=== PATIENT | female | born 1970 | race Two or more races ===

== ENCOUNTER 2021-03-20 03:57 | Inpatient (IN) | payer OTHER ==
[2021-03-20] VITALS (10 sets, daily range): BP systolic 114–146; BP diastolic 66–98
[~2021-03-20] VITALS: Ht 165.1 cm; Wt 139.0 kg
[2021-03-20] MEDS ORDERED: NITROGLYCERIN 0.4 MG SL TAB SL ONE (06:45)
[2021-03-20] MEDS ORDERED: ASPirin 81 mg TAB PO ONE (07:00)
[2021-03-20 07:35] LABS: Basophils # (auto) 0.1 10 ^3/uL (0-0.2); Basophils % (auto) 0.8 % (0.0-2.0); Eosinophils # (auto) 0.4 10 ^3/uL (0-0.8); Eosinophils % (auto) 5.7 % (0.0-7.0); Hematocrit 42.3 % (36.0-46.0); Hemoglobin 14.3 g/dL (12.2-16.2); Lymphocytes # (auto) 2.4 10 ^3/uL (0.4-5.4); Lymphocytes % (auto) 34.8 % (10.0-50.0); Mean Corpuscular Hemoglobin 31.9 pg (28.0-32.0); Mean Corpuscular Hgb Conc. 33.7 g/dL (32.0-36.0); Mean Corpuscular Volume 94.5 fL (80.0-100.0); Monocytes # (auto) 0.5 10 ^3/uL (0-1.3); Monocytes % (auto) 7.1 % (0.0-12.0); Neutrophils # (auto) 3.6 10 ^3/uL (1.6-8.6); Neutrophils % (auto) 51.6 % (37.0-80.0); Nucleated Red Blood Cells % 0.1 %; Red Blood Cells 4.47 10^6/uL (4.0-5.20); Red Cell Distribution Width 13.6 % (11.8-14.3)
[2021-03-20 07:56] LABS: Albumin 3.5 g/dL (3.4-5.0); Calcium 8.7 mg/dL (8.5-10.1); Potassium 4.1 mmol/L (3.5-5.1)
[2021-03-20 08:01] LABS: BUN/Creatinine Ratio 31.5; Bilirubin, Total 0.3 mg/dL (0.2-1.0); Total Protein 7.1 g/dL (6.4-8.2)
[2021-03-20] MEDS ORDERED: MORPHINE SULFATE 4 MG/ML SYR/VIAL IV ONE (08:15)
[2021-03-20] MEDS ORDERED: ONDANSETRON HCL 4 MG/2 ML VIAL IV ONE (08:15)
[2021-03-20 09:48] LABS: Urine Bacteria NONE SEEN /hpf (None Seen); Urine Blood Negative /uL (Negative); Urine Specific Gravity 1.024 (1.001-1.035); Urine WBC 1 /hpf (0 - 5)
[2021-03-20] MEDS ORDERED: LIDOCAINE 2%HCL (LOCAL ANESTH.) INJ 20ML MDV ONE (10:20)
[2021-03-20] MEDS ORDERED: ANGIOMAX 250 MG VIAL IV ONE (10:42)
[2021-03-20] MEDS ORDERED: HEPARIN SODIUM (PORCINE) 5000 UNITS/ML 1ML VIAL ONE (10:42)
[2021-03-20] MEDS ORDERED: fentaNYL CITRATE 100 MCG/2 ML VL ONE (10:43)
[2021-03-20] MEDS ORDERED: VERAPAMIL 2.5MG/ML INJ 2ML VIAL IV ONE (10:43)
[2021-03-20] MEDS ORDERED: SODIUM CHL 0.9% 50 ML ONE (10:43)
[2021-03-20] MEDS ORDERED: MIDAZOLAM HCL 2MG/2ML 2ml VIAL (1mg/ml) ONE (10:43)
[2021-03-20] MEDS ORDERED: IODIXANOL 320MG/ML 100ML BTL IV ONE (11:23)
[2021-03-20] MEDS ORDERED: PANTOPRAZOLE 40 MG TAB PO ONE ×2 (12:30)
[2021-03-20] MEDS ORDERED: traMADol HCL 50 MG TAB PO PRN (12:30)
[2021-03-20] MEDS ORDERED: MORPHINE SULFATE INJECTION 2 MG/ML SYRG IV PRN (12:30)
[2021-03-20] MEDS ORDERED: NITROGLYCERIN 0.4 MG SL TAB SL PRN ×2 (12:30→12:45)
[2021-03-20] MEDS ORDERED: ATORVASTATIN 20 MG TAB PO SCH (22:00)
[2021-03-20] MEDS: ATORVASTATIN 20 MG TAB PO SCH (22:58)
[2021-03-21 05:00] VITALS: BP 116/84
[2021-03-21 06:18] LABS: Calcium 9.2 mg/dL (8.5-10.1); Potassium 4.6 mmol/L (3.5-5.1)
[2021-03-21 09:00] VITALS: BP 130/78
[2021-03-21] MEDS: ASPirin 81 mg TAB PO SCH (09:53)
[2021-03-21] MEDS: PANTOPRAZOLE 40 MG TAB PO SCH (09:53)
[2021-03-21] MEDS: NIFEdipine ER 30 MG TAB PO SCH (09:54)
[2021-03-21] MEDS: traMADol HCL 50 MG TAB PO PRN ×2 (09:55→21:10)
[2021-03-21] MEDS ORDERED: ASPirin 81 mg TAB PO SCH (10:00)
[2021-03-21] MEDS ORDERED: NIFEdipine ER 30 MG TAB PO SCH (10:00)
[2021-03-21] MEDS ORDERED: PANTOPRAZOLE 40 MG TAB PO SCH (10:00)
[2021-03-21] MEDS: MORPHINE SULFATE INJECTION 2 MG/ML SYRG IV PRN ×2 (12:53→14:03)
[2021-03-21 13:00] VITALS: BP 139/87
[2021-03-21] MEDS ORDERED: BISO5TAB44 PO (13:14)
[2021-03-21] MEDS ORDERED: ATOR20TA50 PO (13:14)
[2021-03-21] MEDS ORDERED: NIFE1TAB30 PO (13:14)
[2021-03-21] MEDS ORDERED: ENALAPRIL MALEATE 2.5 MG TAB PO ONE (14:00)
[2021-03-21] MEDS ORDERED: CARVEDILOL 3.125 MG TAB PO ONE (14:00)
[2021-03-21 16:49] VITALS: BP 128/71
[2021-03-21 22:00] VITALS: BP 132/79
[2021-03-21] MEDS: ATORVASTATIN 20 MG TAB PO SCH (22:47)
[2021-03-21] MEDS: CARVEDILOL 3.125 MG TAB PO SCH (22:47)
[2021-03-22] MEDS: MORPHINE SULFATE INJECTION 2 MG/ML SYRG IV PRN ×2 (02:04→04:19)
[2021-03-22 05:00] VITALS: BP 139/93
[2021-03-22 09:00] VITALS: BP 141/95
[2021-03-22] MEDS: CARVEDILOL 3.125 MG TAB PO SCH (09:10)
[2021-03-22] MEDS: ASPirin 81 mg TAB PO SCH (09:10)
[2021-03-22] MEDS: PANTOPRAZOLE 40 MG TAB PO SCH (09:11)
[2021-03-22] MEDS: NIFEdipine ER 30 MG TAB PO SCH (09:11)
[2021-03-22] MEDS ORDERED: ENALAPRIL MALEATE 2.5 MG TAB PO SCH (10:00)
== END 2021-03-22 12:42 | disposition home or self-care (01) | DRG 287 ==
LOC: EDBD 03:57 → ER 03:57 → TELE 12:23 → TELE-WESTW 13:06
PROVIDERS: ADMIT Internal Medicine; ATTEND Family Medicine
PROC: 4A023N7 Measurement of Cardiac Sampling and Pressure, Left Heart, Percutaneous Approach (ICD-10-PCS; principal; 2021-03-20)
PROC: B215YZZ Fluoroscopy of Left Heart using Other Contrast (ICD-10-PCS; 2021-03-20)
PROC: B211YZZ Fluoroscopy of Multiple Coronary Arteries using Other Contrast (ICD-10-PCS; 2021-03-20)
DX: I51.4 Myocarditis, unspecified (principal); Z68.43 Body mass index [BMI] 50.0-59.9, adult; E66.01 Morbid (severe) obesity due to excess calories; Z20.822 Contact with and (suspected) exposure to COVID-19; Z79.82 Long term (current) use of aspirin; Z88.1 Allergy status to other antibiotic agents; I25.10 Atherosclerotic heart disease of native coronary artery without angina pectoris
CPT/HCPCS: 36415; 71045; 80048; 80053; 80061; 81001; 83735; 84484; 85025; 87426; 93005; 93306; 93458; 99152; G0378; J2250; J2405; Q9967